=== PATIENT | female | born 1970 | race Caucasian/White ===

== ENCOUNTER 2023-07-12 09:21 | Outpatient (CLI) | payer SELFPAY | END 2023-07-12 09:22 | disposition home or self-care (01) | LOC: CSHCT 09:21 | PROVIDERS: ATTEND Family Medicine | DX: E78.00 Pure hypercholesterolemia, unspecified (principal); R93.1 Abnormal findings on diagnostic imaging of heart and coronary circulation | CPT/HCPCS: 75571 ==